=== PATIENT | female | born 1995 | race Caucasian/White ===

== ENCOUNTER 2016-09-21 20:26 | Emergency (ER) | payer BC ==
--- NOTE | 2016-09-21 21:03 | ER Document Report ---
ED Medical Screen (RME) - General Stated Complaint: ABDOMINAL PAIN Mode of Arrival: Ambulatory Information source: Patient Notes: c/o of RLQ pain that is intermittent, described as sharp. States it is worse with movement, drinking soda and eating food. Pain has been present for the past 1.5 weeks. She has tried tylenol and midol which does provide some relief. Endorses fever, chills but denies vomiting, diarrhea, dysuria. Last BM was 1630 today, normal. LMP 08/06/16. hx of cholecystectomy Jul 2015. Hx of ovarian cysts. TRAVEL OUTSIDE OF THE [place] IN LAST 30 DAYS: No - Related Data Allergies/Adverse Reactions: latex [Latex] Allergy (Verified 08/24/15 08:45) skin hurts Past Medical History - Past Medical History Cardiac Medical History: Denies: Hx Coronary Artery Disease, Hx Heart Attack, Hx Hypertension Pulmonary Medical History: Reports: Hx Asthma - PRN inhaler Denies: Hx Bronchitis, Hx COPD, Hx Pneumonia Neurological Medical History: Reports: Hx Seizures - as child. Denies: Hx Cerebrovascular Accident Musculoskeltal Medical History: Denies Hx Arthritis Past Surgical History: Reports: Hx Cholecystectomy, Hx Oral Surgery - wisdom teeth - Immunizations Immunizations up to date: Yes Hx Diphtheria, Pertussis, Tetanus Vaccination: No Physical Exam - Vital signs Vitals: Temp Pulse Resp BP Pulse Ox 98.1 F 74 16 134/75 H 100 09/21/16 20:37 09/21/16 20:37 09/21/16 20:37 09/21/16 20:37 09/21/16 20:37 - Notes Notes: Abdomen: soft, tender to palpation in epigastric, RUQ and RLQ. No rebound or guarding noted. Course - Vital Signs Vital signs: Temp Pulse Resp BP Pulse Ox 98.1 F 74 16 134/75 H 100 09/21/16 20:37 09/21/16 20:37 09/21/16 20:37 09/21/16 20:37 09/21/16 20:37
[2016-09-21 21:47] LABS: ABSOLUTE BASOPHILS # (AUTO) 0.1 10^3/uL (0.0-0.2); ABSOLUTE EOSINOPHILS # (AUTO) 0.1 10^3/uL (0.0-0.6); ABSOLUTE LYMPHOCYTES (AUTO) 4.5 10^3/uL (0.5-4.7); ABSOLUTE MONOCYTES (AUTO) 0.9 10^3/uL (0.1-1.4); ABSOLUTE NEUT (AUTO) 9.1 10^3/uL (1.7-8.2); BASOPHILS % (AUTO) 0.8 % (0-2); EOSINOPHILS % (AUTO) 0.8 % (0-6); HEMATOCRIT 40.6 % (36.0-47.0); HEMOGLOBIN 13.8 g/dL (12.0-15.5); HGB HCT DIFFERENCE 0.8; LYMPHOCYTES % (AUTO) 30.5 % (13-45); MEAN CORPUSCULAR HGB CONC 34.1 g/dL (32.0-36.0); MEAN CORPUSCULAR VOLUME 88 fl (80-97); RED BLOOD COUNT 4.62 10^6/uL (3.72-5.28); RED CELL DISTRIBUTION WIDTH 12.8 % (11.5-14.0); SEGMENTED NEUTROPHILS % (AUTO) 61.9 % (42-78); WHITE BLOOD COUNT 14.7 10^3/uL (4.0-10.5)
[2016-09-21 21:55] LABS: APPEARANCE,URINE CLEAR; BILIRUBIN,URINE NEGATIVE (NEGATIVE); GLUCOSE, URINE NEGATIVE (NEGATIVE); KETONES,URINE NEGATIVE (NEGATIVE); LEUKOCYTE ESTERASE,URINE NEGATIVE (NEGATIVE); NITRITE,URINE NEGATIVE (NEGATIVE); PROTEIN,URINE NEGATIVE (NEGATIVE); URINE SPECIFIC GRAVITY 1.013
[2016-09-21 22:03] LABS: ALANINE AMINOTRANSFERASE 36 U/L (5-35); ALBUMIN 4.6 g/dL (3.7-5.6); ALKALINE PHOSPHATASE 68 U/L (50-135); ANION GAP 10 (5-19); ASPARTATE AMINO TRANSFERASE 24 U/L (5-30); BILIRUBIN,TOTAL 0.5 mg/dL (0.2-1.3); BLOOD UREA NITROGEN 9 mg/dL (7-20); CALCIUM 10.2 mg/dL (8.4-10.2); CARBON DIOXIDE 26 mmol/L (22-30); CHLORIDE 104 mmol/L (98-107); CREATININE RESULT 0.57 mg/dL (0.52-1.25); GLUCOSE 108 mg/dL (75-110); POTASSIUM 4.1 mmol/L (3.6-5.0); SODIUM 139.9 mmol/L (137-145)
--- NOTE | 2016-09-22 02:12 | ER Document Report ---
ED General - General Chief Complaint: Abdominal Pain Stated Complaint: ABDOMINAL PAIN Mode of Arrival: Ambulatory Notes: Patient is a 20-year-old female presents with complaint of right lower quadrant abdominal pain. She says that the pain is actually been there for about a week but was just mild. She says the last one to 2 days became much worse. She saw her doctor to arrange for an ultrasound. Ultrasound was negative except for right ovarian cyst which she's had no past. She was told to come to the ER to rule out appendicitis. She's had no vomiting. No diarrhea. No fevers. Pain is focal to right lower quadrant has been gradually worsening. No abnormal vaginal discharge or bleeding. No dysuria. TRAVEL OUTSIDE OF THE [place] IN LAST 30 DAYS: No - Related Data Allergies/Adverse Reactions: latex [Latex] Allergy (Verified 08/24/15 08:45) skin hurts Past Medical History - General Information source: Patient - Social History Smoking Status: Never Smoker Chew tobacco use (# tins/day): No Frequency of alcohol use: None Drug Abuse: None Family History: Reviewed & Not Pertinent Patient has suicidal ideation: No Patient has homicidal ideation: No - Past Medical History Cardiac Medical History: Denies: Hx Coronary Artery Disease, Hx Heart Attack, Hx Hypertension Pulmonary Medical History: Reports: Hx Asthma - PRN inhaler Denies: Hx Bronchitis, Hx COPD, Hx Pneumonia Neurological Medical History: Reports: Hx Seizures - as child. Denies: Hx Cerebrovascular Accident Renal/ Medical History: Denies: Hx Peritoneal Dialysis Musculoskeltal Medical History: Denies Hx Arthritis Past Surgical History: Reports: Hx Cholecystectomy, Hx Oral Surgery - wisdom teeth - Immunizations Immunizations up to date: Yes Hx Diphtheria, Pertussis, Tetanus Vaccination: No Review of Systems - Review of Systems Notes: My Normal Review Basic REVIEW OF SYSTEMS: CONSTITUTIONAL : Denies fever, chills, or sweats. Denies recent illness. EENT: Denies eye, ear, throat, or mouth pain or symptoms. Denies nasal or sinus congestion. CARDIOVASCULAR: Denies chest pain. RESPIRATORY: Denies cough, cold, or chest congestion. Denies shortness of breath, difficulty breathing, or wheezing. GASTROINTESTINAL: Right lower quadrant abdominal pain. Denies nausea, vomiting , or diarrhea. Denies constipation. Last BM: GENITOURINARY: Denies difficulty urinating, painful urination, burning, frequency, or blood in urine. FEMALE GENITOURINARY: Menstrual. Is late. MUSCULOSKELETAL: Denies neck or back pain or joint pain or swelling. SKIN: Denies rash or skin lesions. HEMATOLOGIC : Denies easy bruising or bleeding. LYMPHATIC: Denies swollen, enlarged glands. NEUROLOGICAL: Denies altered mental status or loss of consciousness. Denies headache. Denies weakness or paralysis or loss of use of either side. Denies problems with gait or speech. Denies sensory or motor loss. PSYCHIATRIC: Denies anxiety or stress or depression. ALL OTHER SYSTEMS REVIEWED AND NEGATIVE. Physical Exam - Vital signs Vitals: Temp Pulse Resp BP Pulse Ox 98.1 F 74 16 134/75 H 100 09/21/16 20:37 09/21/16 20:37 09/21/16 20:37 09/21/16 20:37 09/21/16 20:37 Course - Vital Signs Vital signs: Temp Pulse Resp BP Pulse Ox 98.2 F 70 16 114/62 99 09/22/16 03:00 09/22/16 03:00 09/22/16 03:00 09/22/16 03:00 09/22/16 03:00 - Laboratory Result Diagrams: 09/21/16 21:21 09/21/16 21:21 Laboratory results interpreted by me: 09/21/16 09/21/16 09/21/16 21:21 21:21 21:21 WBC 14.7 H Absolute Neutrophils 9.1 H ALT 36 H Urine Urobilinogen 2.0 H - Transfer of Care Notes: 09/22/16 04:13 Patient is of a slight leukocytosis and some focal pain to right lower quadrant. She has no peritoneal signs patient otherwise looks well. CT scan was obtained to rule out appendicitis. CT scan was negative. Her previous ultrasound does show right-sided ovarian cyst. This could be what's causing her pain. There is also family history of endometriosis. This could be contributing as well. At this time for patient safety be discharged home. She looks well clinically. She's encouraged follow closely with her doctor for reevaluation and for continued monitoring of the ovarian cyst with serial ultrasounds. Patient agrees with plan will be discharged home. Dictation of this chart was performed using voice recognition software; therefore, there may be some unintended grammatical errors. Discharge - Discharge Clinical Impression: Abdominal pain Qualifiers: Abdominal location: right lower quadrant Qualified Code(s): R10.31 - Right lower quadrant pain Ovarian cyst Qualifiers: Laterality: right Qualified Code(s): N83.201 - Unspecified ovarian cyst, right side Condition: Good Disposition: HOME, SELF-CARE Additional Instructions: ABDOMINAL PAIN: There are many causes of abdominal pain. Pain can mean a serious problem requiring surgery (such as appendicitis). It can also be an innocent problem that goes away on its own (such as a viral infection). Often, time must pass to determine the cause of pain. The physician does not feel that hospitalization is necessary, at present. Things may change within the next 24 hours. Call the doctor or come back for re- examination if any problems occur, such as: (1) Pain that becomes more severe, steady, or becomes concentrated in one specific area. Also, pain that is more severe with movement or coughing. (2) Vomiting that persists or becomes more frequent. (3) Blood in the vomitus, urine, or bowel movements. Blood in the stool may have a tarry or black appearance. (4) Shaking chills or fever greater than 100 degrees F. (5) The abdomen becomes more distended or swollen. (6) Bowel movements cease. (7) Failure to improve as expected. NORMAL EXAM AND WORKUP: At this time, your examination and workup show no significant abnormality. No significant abnormal physical findings are noted. All laboratory and imaging ( CT scans ) studies that were ordered show no significant abnormality except for a mildly elevated white blood cell count. Although your examination and all studies that were ordered showed no significant abnormal finding, there are no examinations and no studies that are 100% accurate. There is always the possibility that some abnormality could exist and not be detected with physical examination or within the limits and capabilities of laboratory and other studies. You should return or follow up as you were instructed on your visit today for further evaluation if your symptoms do not resolve. FOLLOW-UP CARE: If you have been referred to a physician for follow-up care, call the physician s office for an appointment as you were instructed or within the next two days. If you experience worsening or a significant change in your symptoms, notify the physician immediately or return to the Emergency Department at any time for re-evaluation. FOLLOW-UP CARE: Please return to the ER immediately if you have worsening pain, fevers, vomiting , or feel that your worsening in any way. Please follow-up with your doctor for close reevaluation and for continued monitoring of your ovarian cyst. Forms: Return to Work
[2016-09-22 04:24] VITALS: BP 125/61
== END 2016-09-22 04:24 | disposition home or self-care (01) ==
LOC: ER 20:26
DX: N83.201 Unspecified ovarian cyst, right side (principal); R10.31 Right lower quadrant pain; J45.909 Unspecified asthma, uncomplicated; Z90.49 Acquired absence of other specified parts of digestive tract; Z91.040 Latex allergy status; D72.829 Elevated white blood cell count, unspecified; Z84.2 Family history of other diseases of the genitourinary system
CPT/HCPCS: 36415; 74177; 80053; 81001; 81025; 85025; 99284

== ENCOUNTER → 2016-09-21 | Outpatient (CLI) | payer BC | LOC: RAD 12:21 | PROVIDERS: ATTEND Physician Assistant | DX: R10.30 Lower abdominal pain, unspecified (principal); N83.201 Unspecified ovarian cyst, right side | CPT/HCPCS: 76830; 76856 ==

== ENCOUNTER 2017-03-01 16:02 | Emergency (ER) | payer BC ==
--- NOTE | 2017-03-01 17:54 | ER Document Report ---
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 At some point around noon, the patient began to feel shaky and felt as if she could not get her breath and then she says she almost passed out. She thought she may have been hungry because she did not eat anything this morning like she normally does. She ate some leftover [employer] food that was available. Patient did feel some chest pains and felt as if her lungs "locked up" on her. No cough or cold or chest congestion. No fevers. No significant past medical history. Patient says that a lot of people in her family have anxiety and panic attacks but she has never had him. Denies feeling upset or anxious or nervous or worried about anything. TRAVEL OUTSIDE OF THE [place] IN LAST 30 DAYS: No - Related Data Allergies/Adverse Reactions: latex [Latex] Allergy (Verified 03/01/17 16:06) skin hurts Past Medical History - Social History Chew tobacco use (# tins/day): No Frequency of alcohol use: None Drug Abuse: None - Past Medical History Cardiac Medical History: Denies: Hx Coronary Artery Disease, Hx Heart Attack, Hx Hypertension Pulmonary Medical History: Reports: Hx Asthma - PRN inhaler Denies: Hx Bronchitis, Hx COPD, Hx Pneumonia Neurological Medical History: Reports: Hx Seizures - as child. Denies: Hx Cerebrovascular Accident Renal/ Medical History: Denies: Hx Peritoneal Dialysis Musculoskeltal Medical History: Denies Hx Arthritis Past Surgical History: Reports: Hx Cholecystectomy, Hx Oral Surgery - wisdom teeth - Immunizations Immunizations up to date: Yes Hx Diphtheria, Pertussis, Tetanus Vaccination: No Physical Exam - Vital signs Vitals: Temp Pulse Resp BP Pulse Ox 98.3 F 99 20 135/82 H 98 03/01/17 16:07 03/01/17 16:07 03/01/17 16:07 03/01/17 16:07 03/01/17 16:07 Course - Vital Signs Vital signs: Temp Pulse Resp BP Pulse Ox 98.3 F 99 15 135/82 H 98 03/01/17 16:07 03/01/17 16:07 03/01/17 17:01 03/01/17 16:07 03/01/17 16:07
--- NOTE | 2017-03-01 18:34 | RADIOLOGY REPORT (SQ) ---
EXAM DESCRIPTION: CHEST PA/LAT COMPLETED DATE/TIME: 03/01/2017 6:24 pm REASON FOR STUDY: Helen short of breath and almost passed out COMPARISON: 12/31/2006 EXAM PARAMETERS: NUMBER OF VIEWS: two views TECHNIQUE: Digital Frontal and Lateral radiographic views of the chest acquired. RADIATION DOSE: NA LIMITATIONS: none FINDINGS: LUNGS AND PLEURA: No opacities, masses or pneumothorax. No pleural effusion. MEDIASTINUM AND HILAR STRUCTURES: No masses or contour abnormalities. HEART AND VASCULAR STRUCTURES: Heart normal size. No evidence for failure. BONES: No acute findings. HARDWARE: None in the chest. OTHER: No other significant finding. IMPRESSION: NO SIGNIFICANT RADIOGRAPHIC FINDING IN THE CHEST. TECHNICAL DOCUMENTATION: JOB ID: [id number] [employer]- All Rights Reserved
[2017-03-01 18:53] LABS: ABSOLUTE BASOPHILS # (AUTO) 0.1 10^3/uL (0.0-0.2); ABSOLUTE EOSINOPHILS # (AUTO) 0.1 10^3/uL (0.0-0.6); ABSOLUTE LYMPHOCYTES (AUTO) 3.5 10^3/uL (0.5-4.7); ABSOLUTE MONOCYTES (AUTO) 0.6 10^3/uL (0.1-1.4); ABSOLUTE NEUT (AUTO) 7.6 10^3/uL (1.7-8.2); BASOPHILS % (AUTO) 0.5 % (0-2); EOSINOPHILS % (AUTO) 0.5 % (0-6); HEMATOCRIT 41.5 % (36.0-47.0); HGB HCT DIFFERENCE 0.5; LYMPHOCYTES % (AUTO) 29.3 % (13-45); MEAN CORPUSCULAR HEMOGLOBIN 30.4 pg (27.0-33.4); MEAN CORPUSCULAR HGB CONC 33.7 g/dL (32.0-36.0); MEAN CORPUSCULAR VOLUME 90 fl (80-97); MONOCYTES % (AUTO) 5.4 % (3-13); RED BLOOD COUNT 4.61 10^6/uL (3.72-5.28); RED CELL DISTRIBUTION WIDTH 12.8 % (11.5-14.0); SEGMENTED NEUTROPHILS % (AUTO) 64.3 % (42-78); WHITE BLOOD COUNT 11.9 10^3/uL (4.0-10.5)
[2017-03-01 19:11] LABS: ALANINE AMINOTRANSFERASE 35 U/L (9-52); ALKALINE PHOSPHATASE 78 U/L (38-126); ANION GAP 14 (5-19); ASPARTATE AMINO TRANSFERASE 25 U/L (14-36); BILIRUBIN,DIRECT 0.4 mg/dL (0.0-0.4); BILIRUBIN,TOTAL 0.5 mg/dL (0.2-1.3); BLOOD UREA NITROGEN 8 mg/dL (7-20); CALCIUM 9.8 mg/dL (8.4-10.2); CARBON DIOXIDE 25 mmol/L (22-30); CHLORIDE 104 mmol/L (98-107); CREATININE RESULT 0.64 mg/dL (0.52-1.25); GLUCOSE 108 mg/dL (75-110); POTASSIUM 3.9 mmol/L (3.6-5.0); SODIUM 142.7 mmol/L (137-145); TOTAL PROTEIN 8.3 g/dL (6.3-8.2)
--- NOTE | 2017-03-01 19:50 | ER Document Report ---
ED General - General Chief Complaint: Chest Tightness Stated Complaint: SHORTNESS OF BREATH Time Seen by Provider: 03/01/17 17:48 Notes: Patient is a 21-year-old female without past medical history who presents with concerns of an episode of chest tightness, shortness of breath and lightheadedness. She is at work when she acutely began to feel the symptoms. States she tried to take deep breath and eat something but this did not improve her symptoms. She did not notice anything to worsened her symptoms. Her boss brought her to an urgent care and they subsequently recommended the patient come to the emergency department for further assessment. She denies any prior history of similar symptoms in the past. Patient denies any use of estrogen or history of DVT or pulmonary embolus. At time of my assessment she states that her symptoms are overall improved now that she is more relaxed. Admits to significant stressors in her life right now including working multiple jobs and trying to plan for a wedding. TRAVEL OUTSIDE OF THE [place] IN LAST 30 DAYS: No - Related Data Allergies/Adverse Reactions: latex [Latex] Allergy (Verified 03/01/17 16:06) skin hurts Past Medical History - General Information source: Patient - Social History Smoking Status: Never Smoker Chew tobacco use (# tins/day): No Frequency of alcohol use: None Drug Abuse: None Lives with: Spouse/Significant other Family History: Reviewed & Not Pertinent Patient has suicidal ideation: No Patient has homicidal ideation: No - Past Medical History Cardiac Medical History: Denies: Hx Coronary Artery Disease, Hx Heart Attack, Hx Hypertension Pulmonary Medical History: Reports: Hx Asthma - PRN inhaler Denies: Hx Bronchitis, Hx COPD, Hx Pneumonia Neurological Medical History: Reports: Hx Seizures - as child. Denies: Hx Cerebrovascular Accident Renal/ Medical History: Denies: Hx Peritoneal Dialysis Musculoskeltal Medical History: Denies Hx Arthritis Past Surgical History: Reports: Hx Cholecystectomy, Hx Oral Surgery - wisdom teeth - Immunizations Immunizations up to date: Yes Hx Diphtheria, Pertussis, Tetanus Vaccination: No Review of Systems - Review of Systems Notes: Constitutional: Negative for fever. HENT: Negative for sore throat. Eyes: Negative for visual changes. Cardiovascular: Negative for chest pain. Respiratory: Positive for shortness of breath. Gastrointestinal: Negative for abdominal pain, vomiting or diarrhea. Genitourinary: Negative for dysuria. Musculoskeletal: Negative for back pain. Skin: Negative for rash. Neurological: Negative for headaches, weakness or numbness. 10 point ROS negative except as marked above and in HPI. Physical Exam - Vital signs Vitals: Temp Pulse Resp BP Pulse Ox 98.3 F 99 20 135/82 H 98 03/01/17 16:07 03/01/17 16:07 03/01/17 16:07 03/01/17 16:07 03/01/17 16:07 Interpretation: Normal Notes: PHYSICAL EXAMINATION: GENERAL: Well-appearing, well-nourished and in no acute distress. HEAD: Atraumatic, normocephalic. EYES: Pupils equal round and reactive to light, extraocular movements intact, sclera anicteric, conjunctiva are normal. ENT: nares patent, oropharynx clear without exudates. Moist mucous membranes. NECK: Normal range of motion, supple without lymphadenopathy LUNGS: Breath sounds clear to auscultation bilaterally and equal. No wheezes rales or rhonchi. HEART: Regular rate and rhythm without murmurs ABDOMEN: Soft, nontender, normoactive bowel sounds. No guarding, no rebound. No masses appreciated. EXTREMITIES: Normal range of motion, no pitting or edema. No cyanosis. NEUROLOGICAL: No focal neurological deficits. Moves all extremities spontaneously and on command. PSYCH: Normal mood, normal affect. SKIN: Warm, Dry, normal turgor, no rashes or lesions noted. Course - Re-evaluation Re-evalutation: 03/01/17 19:47 Patient presents with history most consistent with an acute panic attack. There was a clear trigger for tonight's episode. Symptoms did resolve after receiving medical therapy here in the emergency department. Vitals otherwise within normal limits. I do not suspect an acute pulmonary embolus, ACS, pneumothorax, or any other acute left threatening pathology based on history and exam. Chest x-ray does not demonstrate any evidence of pneumothorax. A d- dimer was sent in triage and is normal. Patient is also noted to be PERC criteria negative. EKG unremarkable without ischemic changes. She does not have any elevated risks for cardiac disease and is only 21 years of age. At this time will discharge with return precautions and follow-up recommendations. Verbal discharge instructions given a the bedside and opportunity for questions given. Medication warnings reviewed. Patient is in agreement with this plan and has verbalized understanding of return precautions and the need for primary care follow-up in the next 24-72 hours. - Vital Signs Vital signs: Temp Pulse Resp BP Pulse Ox 98.3 F 75 18 141/79 H 98 03/01/17 16:07 03/01/17 20:19 03/01/17 20:19 03/01/17 20:19 03/01/17 20:19 - Laboratory Result Diagrams: 03/01/17 18:40 03/01/17 18:40 Laboratory results interpreted by me: 03/01/17 03/01/17 18:40 18:40 WBC 11.9 H Total Protein 8.3 H - Diagnostic Test Radiology reviewed: Image reviewed, Reports reviewed Radiology results interpreted by me: 03/01/17 19:50 Chest x-ray: No acute infiltrate or pneumothorax - EKG Interpretation by Me Additional EKG results interpreted by me: 03/01/17 19:50 Normal sinus rhythm. Rate 86. No ST elevations or depressions. QTC is 412. Discharge - Discharge Clinical Impression: Chest tightness Condition: Good Disposition: HOME, SELF-CARE Additional Instructions: You were seen today for a possible panic attack. Please return if you develop recurrance of your symptoms, ongoing shortness of breath or chest pain, or any other symptoms that are worrisome to you. Follow-up with your primary doctor or mental health provider regarding today's ED visit. Forms: Return to Work
[2017-03-01 20:20] VITALS: BP 141/79
--- NOTE | 2017-03-02 12:58 | EKG REPORT ---
SEVERITY:- BORDERLINE ECG - SINUS RHYTHM INFERIOR Q WAVES, PROBABLY NORMAL VARIATION : Confirmed by: Jace Webster 02-Mar-2017 12:57:58
== END 2017-03-01 20:18 | disposition home or self-care (01) ==
LOC: ER 16:02
DX: R07.89 Other chest pain (principal); J45.909 Unspecified asthma, uncomplicated; R06.02 Shortness of breath; R42 Dizziness and giddiness; Z91.040 Latex allergy status
CPT/HCPCS: 36415; 71020; 80053; 85025; 85379; 93005; 93010; 99285

== ENCOUNTER 2018-08-16 09:08 | Emergency (ER) | payer BC, OTHER ==
[2018-08-16 09:18] VITALS: BP 148/83
[2018-08-16] MEDS ORDERED: HYDROCODONE/ACETAMINOPHEN 5-325 MG TABLET PO ONE (09:22)
[2018-08-16] MEDS ORDERED: DIPH/PERTUSS(ACELL)/TETANUS VAC/PF 0.5 ML SYR (>=10YO) IM ONE (09:22)
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
== END 2018-08-16 10:36 | disposition home or self-care (01) ==
LOC: ER 09:08
DX: S43.402A Unspecified sprain of left shoulder joint, initial encounter (principal); S00.511A Abrasion of lip, initial encounter; S00.81XA Abrasion of other part of head, initial encounter; M79.641 Pain in right hand; M79.642 Pain in left hand; M25.522 Pain in left elbow; M25.512 Pain in left shoulder; M54.2 Cervicalgia; R51 Headache; V89.2XXA Person injured in unspecified motor-vehicle accident, traffic, initial encounter; J45.909 Unspecified asthma, uncomplicated
CPT/HCPCS: 72125; 90471; 90715; 99284

== ENCOUNTER 2019-05-02 09:21 | Emergency (ER) | payer SELFPAY ==
--- NOTE | 2019-05-02 09:34 | ER Document Report ---
ED Medical Screen (RME) - General Chief Complaint: Vaginal Bleeding Stated Complaint: VAGINAL BLEEDING Time Seen by Provider: 05/02/19 09:29 TRAVEL OUTSIDE OF THE [place] IN LAST 30 DAYS: No - HPI Notes: 05/02/19 09:32 Patient is a 23-year-old female who presents complaining of right low back pain that does not radiate feels like a burning sensation as well as being told by her family doctor that she may have an ectopic that was seen on CT scan performed on Sunday across the street. Patient states that she did have some vaginal bleeding that started today. She is otherwise not having any p elvic pain. She has never been before. Movement does make the pain worse in the back. No other concerns or complaints. Denies BUENO, fever, neck pain, URI, CP, SOB, Abd pain, dysuria, hematuria, or rash. I have treated and performed a rapid initial assessment of this patient. A comprehensive ED assessment and evaluation of the patient, analysis of test results and completion of medical decision making process will be conducted by additional ED providers. PHYSICAL EXAMINATION: GENERAL: Well-appearing, well-nourished and in no acute distress. A&Ox4. Answers questions appropriately. LUNGS: Breath sounds clear to auscultation bilaterally and equal. No wheezes rales or rhonchi. HEART: Regular rate and rhythm without murmurs, rubs, gallops. ABDOMEN: Soft, nondistended abdomen. No guarding, no rebound. Normal bowel sounds present. No CVA tenderness bilaterally. grossly nontender (cannot elicit thorough abd exam w/o bed, however). - Related Data Allergies/Adverse Reactions: latex [Latex] Allergy (Verified 05/02/19 09:26) skin hurts Past Medical History - Social History Chew tobacco use (# tins/day): No Frequency of alcohol use: Occasional Drug Abuse: None - Past Medical History Cardiac Medical History: Denies: Hx Coronary Artery Disease, Hx Heart Attack, Hx Hypertension Pulmonary Medical History: Reports: Hx Asthma - PRN inhaler Denies: Hx Bronchitis, Hx COPD, Hx Pneumonia Neurological Medical History: Reports: Hx Seizures - as child. Denies: Hx Cerebrovascular Accident Renal/ Medical History: Denies: Hx Peritoneal Dialysis Musculoskeltal Medical History: Denies Hx Arthritis Past Surgical History: Reports: Hx Cholecystectomy, Hx Oral Surgery - wisdom teeth - Immunizations Immunizations up to date: Yes Hx Diphtheria, Pertussis, Tetanus Vaccination: No
[2019-05-02 10:28] LABS: ABSOLUTE BASOPHILS # (AUTO) 0.1 10^3/uL (0.0-0.2); ABSOLUTE EOSINOPHILS # (AUTO) 0.1 10^3/uL (0.0-0.6); ABSOLUTE LYMPHOCYTES (AUTO) 2.6 10^3/uL (0.5-4.7); ABSOLUTE MONOCYTES (AUTO) 0.4 10^3/uL (0.1-1.4); ABSOLUTE NEUT (AUTO) 4.3 10^3/uL (1.7-8.2); BASOPHILS % (AUTO) 1.2 % (0-2); EOSINOPHILS % (AUTO) 1.2 % (0-6); HEMATOCRIT 40.8 % (36.0-47.0); HEMOGLOBIN 14.1 g/dL (12.0-15.5); LYMPHOCYTES % (AUTO) 34.8 % (13-45); MEAN CORPUSCULAR HEMOGLOBIN 30.3 pg (27.0-33.4); MEAN CORPUSCULAR HGB CONC 34.5 g/dL (32.0-36.0); MEAN CORPUSCULAR VOLUME 88 fl (80-97); MONOCYTES % (AUTO) 5.1 % (3-13); PLATELET COUNT 252 10^3/uL (150-450); RED BLOOD COUNT 4.65 10^6/uL (3.72-5.28); SEGMENTED NEUTROPHILS % (AUTO) 57.7 % (42-78); TOTAL CELLS COUNTED % (AUTO) 100 %; WHITE BLOOD COUNT 7.4 10^3/uL (4.0-10.5)
[2019-05-02 10:53] LABS: ALBUMIN 4.3 g/dL (3.5-5.0); ALKALINE PHOSPHATASE 56 U/L (38-126); ANION GAP 10 (5-19); ASPARTATE AMINO TRANSFERASE 22 U/L (14-36); BILIRUBIN,DIRECT 0.1 mg/dL (0.0-0.4); BILIRUBIN,TOTAL 0.4 mg/dL (0.2-1.3); BLOOD UREA NITROGEN 8 mg/dL (7-20); CALCIUM 9.5 mg/dL (8.4-10.2); CARBON DIOXIDE 25 mmol/L (22-30); CHLORIDE 105 mmol/L (98-107); GLUCOSE 109 mg/dL (75-110); TOTAL PROTEIN 7.3 g/dL (6.3-8.2)
[2019-05-02 10:55] LABS: APPEARANCE,URINE CLEAR; BILIRUBIN,URINE NEGATIVE (NEGATIVE); COLOR,URINE YELLOW; GLUCOSE, URINE NEGATIVE (NEGATIVE); KETONES,URINE NEGATIVE (NEGATIVE); LEUKOCYTE ESTERASE,URINE NEGATIVE (NEGATIVE); NITRITE,URINE NEGATIVE (NEGATIVE); PROTEIN,URINE NEGATIVE (NEGATIVE); URINE SPECIFIC GRAVITY 1.015; UROBILINOGEN,URINE NEGATIVE mg/dL (<2.0)
--- NOTE | 2019-05-02 12:17 | RADIOLOGY REPORT (SQ) ---
EXAM DESCRIPTION: U/S NON OB PEL TV W/DOPPLER COMPLETED DATE/TIME: 05/02/2019 11:43 am REASON FOR STUDY: ?ectopic per her PCM beta HCG is negative COMPARISON: 09/21/2016 TECHNIQUE: Dynamic and static grayscale images acquired of the pelvis via transvaginal approach and recorded on PACS. Additional selected color Doppler and spectral images recorded. LIMITATIONS: None. FINDINGS: UTERUS: Unremarkable in size measuring 6.0 x 3.8 x 3.2 cm. No focal lesions. ENDOMETRIAL STRIPE: No focal or generalized thickening. No masses. Endometrial stripe measures 7.8 m m. CERVIX: No nabothian cyst. Cervix measures 1.6 cm. RIGHT OVARY AND DOPPLER: Normal size measuring 3.5 x 2.1 x 2.1 cm. No worrisome masses. Normal arteri al vascular flow without evidence for torsion. LEFT OVARY AND DOPPLER: Normal size measuring 2.7 x 2.7 x 2.1 cm. No worrisome masses. Normal arteria l vascular flow without evidence for torsion. FREE FLUID: Trace free fluid in the pelvic cul-de-sac. OTHER: No other significant finding. IMPRESSION: Trace free fluid within the pelvic cul-de-sac, likely physiologic. Otherwise, unremarka ble pelvic ultrasound. TECHNICAL DOCUMENTATION: JOB ID: [id number] [employer]- All Rights Reserved Reading location - IP/workstation name: [email or web address]
--- NOTE | 2019-05-02 12:30 | ER Document Report ---
Entered by LAVERNE BERGER SCRIBE 05/02/19 1034 Acting as scribe for:CHOLO MARADIAGA MD ED GI/ - General Chief Complaint: Vaginal Bleeding Stated Complaint: VAGINAL BLEEDING Time Seen by Provider: 05/02/19 09:29 Mode of Arrival: Ambulatory Information source: Patient Notes: Patient is a 23-year-old female who presents to the emergency department today with right low back and right flank pain. Patient states that she has recently changed medical doctors and her new doctor "ordered a bunch of lab work". Patient states her cortisol levels were high so they did a CT scan. Patient states on the CT scan her adrenal glands "looked fine" but they noticed somethi ng in her "fallopian tube" and there was concern for possible ectopic. Patient states they did a test yesterday but she does not know the results. Patient mentions that she has had this right-sided pain for x1 week. Patient states that 3 weeks prior to the pain beginning, she started working out in the gym which is a new routine for her. Patient states she did "normal stuff" including using the elliptical. Patient states this morning when she woke up there was blood on her bed sheets and she noticed vaginal bleeding that was about the same as when a period is about to start. Patient states her last menstrual cycle began on April 21 and it was normal and on time. Patient denies any abdominal pain. TRAVEL OUTSIDE OF THE [place] IN LAST 30 DAYS: No - Related Data Allergies/Adverse Reactions: latex [Latex] Allergy (Verified 05/02/19 09:26) skin hurts Past Medical History - General Information source: Patient - Social History Smoking Status: Never Smoker Cigarette use (# per day): No Chew tobacco use (# tins/day): No Smoking Education Provided: No Frequency of alcohol use: Occasional Drug Abuse: None Lives with: Family Family History: Reviewed & Not Pertinent Patient has suicidal ideation: No Patient has homicidal ideation: No Pulmonary Medical History: Reports: Hx Asthma - PRN inhaler Neurological Medical History: Reports: Hx Seizures - Seizures as child, has been off of medications for many years. Past Surgical History: Reports: Hx Cholecystectomy, Hx Oral Surgery - wisdom teeth - Immunizations Immunizations up to date: Yes Hx Diphtheria, Pertussis, Tetanus Vaccination: No Review of Systems - Review of Systems Constitutional: No symptoms reported EENT: No symptoms reported Cardiovascular: No symptoms reported Respiratory: No symptoms reported Gastrointestinal: No symptoms reported Genitourinary: See HPI, Flank pain Female Genitourinary: See HPI, Last menstrual period Musculoskeletal: See HPI, Back pain Skin: No symptoms reported Hematologic/Lymphatic: No symptoms reported Neurological/Psychological: No symptoms reported -: Yes All other systems reviewed and negative Physical Exam - Notes Notes: Physical Exam: General: Alert, appears well. HEENT: Normocephalic. Atraumatic. PERRL. Extraocular movements intact. Oropharynx clear. Neck: Supple. Non-tender. Respiratory: No respiratory distress. Clear and equal breath sounds bilaterally. Cardiovascular: Regular rate and rhythm. Abdominal: Obese. Non-tender. No distension. Normal Bowel Sounds. Back: Right flank and lumbar musculature tenderness to palpation. Tenderness radiates laterally around the abdomen inferior to the right rib margin. No subcutaneous fat tenderness or skin irritation. No left sided tenderness. Extremities: Moves all four extremities. Upper extremities: Normal inspection. Normal ROM. Lower extremities: Normal inspection. No edema. Normal ROM. Neurological: Normal cognition. AAOx4. Normal speech. Psychological: Normal affect. Normal Mood. Skin: Warm. Dry. Normal color. Course - Re-evaluation Re-evalutation: 05/02/19 12:32 Transvaginal ultrasounds unremarkable. CBC, Chem-12, UA are unremarkable, test is negative. I suspect that the reproducible muscular pain found on physical exam is related to her beginning a workout routine in the last few weeks. I do not have an explanation for why she has started her vaginal bleeding. - Laboratory Result Diagrams: 05/02/19 10:05 05/02/19 10:05 Laboratory results interpreted by me: 05/02/19 09:45 Urine Blood MODERATE H - Diagnostic Test Radiology reviewed: Image reviewed, Reports reviewed - Transvaginal ultrasound shows trace pelvic free fluid otherwise unremarkable scan. Discharge - Discharge Clinical Impression: Right flank pain, Muscle strain Condition: Stable Disposition: HOME, SELF-CARE Additional Instructions: The discomfort you are having in your right flank and back region is most likely due to muscle strain from the working out routine you started recently. The blood counts, and blood chemistries were normal. The urine was normal in appearance. The test was negative. The ultrasound of your pelvis was unremarkable. Bleeding that occurs that is not due to menstrual cycle, is called dysfunctional uterine bleeding. This is a common occurrence. Treatment is needed when the bleeding lasts for many days and is very heavy. Take Tylenol and ibuprofen 800 mg every 8 hours, or Aleve 2 tablets every 12 hours for your back and flank muscle discomfort. Try to avoid activities that make the pain worse for the next several days. You should follow-up with your primary care provider next week for further evaluation of the bleeding if it continues. Return to the emergency room if the bleeding becomes heavy with clots and lasts for more than a few days. RETURN TO THE EMERGENCY ROOM IF ANY NEW OR WORSENING SYMPTOMS. [facility] Attestation: 05/02/19 12:34 I personally performed the services described in the documentation, reviewed and edited the documentation which was dictated to the scribe in my presence, and it accurately records my words and actions. I personally performed the services described in the documentation, reviewed and edited the documentation which was dictated to the scribe in my presence, and it accurately records my words and actions.
[2019-05-02 13:28] VITALS: BP 130/70
== END 2019-05-02 13:28 | disposition home or self-care (01) ==
LOC: ER 09:21
DX: M54.5 Low back pain (principal); R10.9 Unspecified abdominal pain; N93.8 Other specified abnormal uterine and vaginal bleeding; Z91.040 Latex allergy status; Z90.49 Acquired absence of other specified parts of digestive tract
CPT/HCPCS: 36415; 76830; 80053; 81001; 84702; 85025; 86900; 86901; 93976; 99284